=== PATIENT | female | born 1955 | race Caucasian/White ===

== ENCOUNTER → 2016-11-16 | Outpatient (CLI) | payer OTHER ==
[~2016-11-16] VITALS: Ht 170.2 cm; Wt 94.3 kg
== END ==
LOC: OPSV 14:44
DX: M81.0 Age-related osteoporosis without current pathological fracture (principal)
CPT/HCPCS: 96372

== ENCOUNTER → 2017-05-23 | Outpatient (CLI) | payer OTHER | LOC: OPSV 10:17 | DX: N30.90 Cystitis, unspecified without hematuria (principal); Z87.440 Personal history of urinary (tract) infections | CPT/HCPCS: 81001; 87077; 87086; 87186; G0463 ==

== ENCOUNTER 2021-11-12 12:32 | Emergency (ER) | payer OTHER ==
[~2021-11-12 12:32] MED LIST: BRINTELLIX10 MG PO; BUPROPION XL150 MG PO; CLARITIN10 MG PO; DEXILANT60 MG PO; ELMIRON 100 MG100 MG PO; LEVOCETIRIZINE D5 MG PO; LISINOPRIL5 MG PO; NEXIUM40 MG PO; NORCO 5-325 TA1 EACH PO; RELAFEN 750 MG750 MG PO; ROPINIROLE HCL2 MG PO; ULTRAM50 MG PO; VENTOLIN HFA 66.7 GM INH; ZOFRAN ODT 4 MG4 MG PO; ZOFRAN4 MG PO
[2021-11-12 13:54] LABS: HEMOGLOBIN 13.3 gm/dl (12.3-15.3); RED BLOOD COUNT 4.51 M/UL (4.00-5.10)
[2021-11-12 14:27] LABS: BUN/CREATININE RATIO 12 (0-10)
[2021-11-12] MEDS ORDERED: ZOFRAN ODT 4 MG4 MG PO (17:36)
[2021-11-12] MEDS ORDERED: ANTIVERT 12.512.5 MG PO (17:36)
== END 2021-11-12 17:44 | disposition home or self-care (01) ==
LOC: ER1 12:32
PROVIDERS: Family Medicine
DX: N30.10 Interstitial cystitis (chronic) without hematuria (principal); K44.9 Diaphragmatic hernia without obstruction or gangrene; R09.81 Nasal congestion; R42 Dizziness and giddiness; J44.9 Chronic obstructive pulmonary disease, unspecified; Z20.822 Contact with and (suspected) exposure to COVID-19
CPT/HCPCS: 70450; 80053; 81001; 82550; 82553; 83605; 83690; 83735; 84484; 85025; 87086; 93005; 96374; 99284; J2405; Q9967; U0002

== ENCOUNTER 2022-02-19 22:09 | Observation (INO) | payer MEDICARE, OTHER ==
[~2022-02-19] VITALS: Ht 167.6 cm; Wt 97.1 kg
[~2022-02-19 22:09] MED LIST changes: +ANTIVERT 12.512.5 MG PO; -ZOFRAN4 MG PO
[2022-02-19 23:11] LABS: HEMOGLOBIN 13.3 gm/dl (12.3-15.3); RED BLOOD COUNT 4.44 M/UL (4.00-5.10); WHITE BLOOD COUNT 13.4 K/UL (4.5-11.0)
[2022-02-19 23:54] LABS: BUN/CREATININE RATIO 11 (0-10)
[2022-02-20] MEDS ORDERED: BUSPIRONE HCL5 MG PO (10:47)
[2022-02-20] MEDS ORDERED: IBUPROFEN600 MG PO (10:48)
[2022-02-20] MEDS ORDERED: MECLIZINE HCL12.5 MG PO (10:49)
[2022-02-20] MEDS ORDERED: HYDROCODON-ACE1 EAC4 PO (10:49)
[2022-02-22 06:51] LABS: HEMOGLOBIN 11.3 gm/dl (12.3-15.3); RED BLOOD COUNT 3.83 M/UL (4.00-5.10); WHITE BLOOD COUNT 7.3 K/UL (4.5-11.0)
[2022-02-22 07:00] LABS: BUN/CREATININE RATIO 11 (0-10)
[2022-02-22] MEDS ORDERED: ENOXAPARIN40 MG/0.4 SC (10:25)
[2022-02-22] MEDS ORDERED: MIRALAX17 GM PO (10:25)
[2022-02-22] MEDS ORDERED: HYDROCODON-ACE1 EAC4 PO (13:07)
== END 2022-02-22 13:07 | disposition home or self-care (01) ==
LOC: ER1 22:09 → M/S 02-20 05:45 → CDU 02-20 05:45 → M/S 02-20 05:45
PROVIDERS: Internal Medicine; ADMIT Internal Medicine
DX: S52.501A Unspecified fracture of the lower end of right radius, initial encounter for closed fracture (principal); S82.142A Displaced bicondylar fracture of left tibia, initial encounter for closed fracture; K44.9 Diaphragmatic hernia without obstruction or gangrene; N30.10 Interstitial cystitis (chronic) without hematuria; J96.11 Chronic respiratory failure with hypoxia; J44.9 Chronic obstructive pulmonary disease, unspecified; E66.2 Morbid (severe) obesity with alveolar hypoventilation; Z68.34 Body mass index [BMI] 34.0-34.9, adult; W19.XXXA Unspecified fall, initial encounter; Z77.22 Contact with and (suspected) exposure to environmental tobacco smoke (acute) (chronic); Z79.899 Other long term (current) drug therapy; Z88.1 Allergy status to other antibiotic agents; Z88.8 Allergy status to other drugs, medicaments and biological substances
CPT/HCPCS: ECHO; 36415; 70450; 71045; 72192; 73110; 73200; 73502; 73564; 73700; 80048; 80053; 81001; 82550; 82553; 82607; 82746; 83036; 83735; 84100; 84439; 84443; 84484; 84550; 85025; 93005; 93306; 94760; 96372; 97110-GP-CQ; 97162; 97166; 97530; 97530-GP-CQ; 97535; 99285; G0378; J1650

== ENCOUNTER → 2022-03-03 | Outpatient (CLI) | payer MEDICARE, OTHER ==
[~2022-03-03] MED LIST changes: +BUSPIRONE HCL5 MG PO; +ENOXAPARIN40 MG/0.4 SC; +HYDROCODON-ACE1 EAC4 PO; +IBUPROFEN600 MG PO; +MECLIZINE HCL12.5 MG PO; +MIRALAX17 GM PO
== END ==
LOC: KOH-I 08:40
DX: S83.521A Sprain of posterior cruciate ligament of right knee, initial encounter (principal); S83.242A Other tear of medial meniscus, current injury, left knee, initial encounter; R60.0 Localized edema; S82.115A Nondisplaced fracture of left tibial spine, initial encounter for closed fracture
CPT/HCPCS: 73721